=== PATIENT | female | born 1955 | race Caucasian/White ===

== ENCOUNTER 2017-05-05 22:04 | Emergency (ER) | payer SELFPAY | END 2017-05-06 00:40 | disposition home or self-care (01) | LOC: D.ER 22:04 | DX: S63.502A Unspecified sprain of left wrist, initial encounter (principal); W01.0XXA Fall on same level from slipping, tripping and stumbling without subsequent striking against object, initial encounter; S63.501A Unspecified sprain of right wrist, initial encounter; S20.219A Contusion of unspecified front wall of thorax, initial encounter; E11.9 Type 2 diabetes mellitus without complications ==